=== PATIENT | female | born 1980 | race American Indian/Alaskan Native ===

== ENCOUNTER 2018-05-14 11:33 | Outpatient (CLI) | payer OTHER | END 2018-05-15 10:46 | disposition home or self-care (01) | LOC: OBS/DEL 11:33 | DX: O26.893 Other specified pregnancy related conditions, third trimester (principal); S29.012A Strain of muscle and tendon of back wall of thorax, initial encounter; S39.012A Strain of muscle, fascia and tendon of lower back, initial encounter; S39.013A Strain of muscle, fascia and tendon of pelvis, initial encounter; Z34.83 Encounter for supervision of other normal pregnancy, third trimester; X50.9XXA Other and unspecified overexertion or strenuous movements or postures, initial encounter; Y93.89 Activity, other specified; Y92.89 Other specified places as the place of occurrence of the external cause; Y99.8 Other external cause status ==

== ENCOUNTER → 2018-05-26 | Outpatient (CLI) | payer OTHER ==
[~2018-05-26] MED LIST: FLONASE16 GM NASAL; LORATADINE10 MG PO; MUCINEX600 MG PO; OSEL75CA PO; PRENATABS RX T1 EACH
== END | disposition home or self-care (01) ==
LOC: ER 23:47
DX: J09.X2 Influenza due to identified novel influenza A virus with other respiratory manifestations (principal); O26.893 Other specified pregnancy related conditions, third trimester

== ENCOUNTER 2018-05-27 00:28 | Inpatient (IN) | payer OTHER ==
[~2018-05-27] VITALS: Ht 167.6 cm; Wt 92.1 kg
[2018-05-27] MEDS ORDERED: PRENATABS RX T1 EACH (00:33)
--- NOTE | 2018-05-27 00:33 | NUR ---
SE RECIBE PTE ALERTA Y ORIENTADA POR DAWSON. PTE EMBARAZADA DE 33 SEMANAS,REFIERE PRESENTAR TOS, CONGESTION NASAL Y DOLOR EN EL PECHO Y COSTILLAS AL TOSER DESDE CHAPIS.
--- NOTE | 2018-05-27 02:09 | NUR ---
.IRWIN EVALUA PACIENTE Y ORDENA TRATAMIENTO MEDICO DEL CUAL SE ORIENTA PACIENTE Y FAMILIAR.PACIENTE REFIERE ENTENDER. SE COLECTAN MUESTRAS DE LABORATORIOS Y ADMINISTRAN MEDICAMENTOS ROLANDO ORDEN MEDICA SIGUIENDO MEDIDAS ASEPTICAS. PROCEDIMIENTOS LLEVADOS A CABO POR .
[2018-05-31] MEDS ORDERED: OSEL75CA PO (10:58)
[2018-05-31] MEDS ORDERED: MUCINEX600 MG PO (10:58)
[2018-05-31] MEDS ORDERED: LORATADINE10 MG PO (10:58)
[2018-05-31] MEDS ORDERED: FLONASE16 GM NASAL (10:59)
== END 2018-05-31 12:20 | disposition home or self-care (01) | DRG 833 ==
LOC: ER 00:28 → OB/GYN 05:10
PROVIDERS: ADMIT Obstetrics & Gynecology
PROC: 3E0F7GC Introduction of Other Therapeutic Substance into Respiratory Tract, Via Natural or Artificial Opening (ICD-10-PCS; principal; 2018-05-27)
PROC: 4A033R1 Measurement of Arterial Saturation, Peripheral, Percutaneous Approach (ICD-10-PCS; 2018-05-27)
PROC: 8E0ZXY6 Isolation (ICD-10-PCS; 2018-05-27)
PROC: 4A1HXCZ Monitoring of Products of Conception, Cardiac Rate, External Approach (ICD-10-PCS; 2018-05-27)
DX: O26.893 Other specified pregnancy related conditions, third trimester (principal); J10.1 Influenza due to other identified influenza virus with other respiratory manifestations; Z34.83 Encounter for supervision of other normal pregnancy, third trimester

== ENCOUNTER 2018-07-20 06:55 | Inpatient (IN) | payer OTHER ==
[~2018-07-20] VITALS: Ht 167.6 cm; Wt 3.6 kg
[2018-07-23] MEDS ORDERED: PREPLUS CA-FE1 EACH PO (12:43)
[2018-07-23] MEDS ORDERED: IBUPROFEN800 MG PO (12:43)
[2018-07-23] MEDS ORDERED: GAS RELIEF125 MG PO (12:43)
[2018-07-23] MEDS ORDERED: DOCUSATE SODIU100 MG PO (12:43)
== END 2018-07-23 15:36 | DRG 788 ==
LOC: LDR 06:55 → OB/GYN 06:55 → O/R 10:43 → OB/GYN 13:14
PROVIDERS: ADMIT Obstetrics & Gynecology
PROC: 4A1HXCZ Monitoring of Products of Conception, Cardiac Rate, External Approach (ICD-10-PCS; 2018-07-20)
PROC: 4A033R1 Measurement of Arterial Saturation, Peripheral, Percutaneous Approach (ICD-10-PCS; 2018-07-20)
PROC: 10D00Z1 Extraction of Products of Conception, Low, Open Approach (ICD-10-PCS; principal; 2018-07-20 10:00)
DX: O36.63X0 Maternal care for excessive fetal growth, third trimester, not applicable or unspecified (principal); O62.0 Primary inadequate contractions; Z3A.40 40 weeks gestation of pregnancy; Z37.0 Single live birth